=== PATIENT | male | born 1990 | race Caucasian/White ===

== ENCOUNTER 2021-11-23 14:18 | Emergency (ER) | payer OTHER ==
[2021-11-23] MEDS ORDERED: LORazepam 1 MG Tab PO ONE (15:23)
== END 2021-11-23 18:30 | disposition home or self-care (01) ==
LOC: JD.ED 14:18
DX: F41.9 Anxiety disorder, unspecified (principal)
CPT/HCPCS: 36415; 80053; 80306; 80307; 85025; 99283; A9270